=== PATIENT | male | born 1990 | race Caucasian/White ===

== ENCOUNTER 2020-07-23 06:20 | Emergency (ER) | payer OTHER ==
[~2020-07-23] VITALS: Ht 182.8 cm; Wt 90.7 kg
== END 2020-07-23 07:32 | disposition home or self-care (01) ==
LOC: ED 06:20
DX: T15.92XA Foreign body on external eye, part unspecified, left eye, initial encounter (principal); X58.XXXA Exposure to other specified factors, initial encounter; Y93.89 Activity, other specified; Y92.89 Other specified places as the place of occurrence of the external cause; Y99.8 Other external cause status

== ENCOUNTER 2022-09-01 20:40 | Emergency (ER) | payer SELFPAY ==
[~2022-09-01] VITALS: Ht 182.8 cm; Wt 81.6 kg
[2022-09-01] MEDS ORDERED: PENICILLIN VK500 MG PO (21:46)
== END 2022-09-01 22:02 | disposition home or self-care (01) ==
LOC: ED 20:40
DX: K03.81 Cracked tooth (principal); K08.89 Other specified disorders of teeth and supporting structures; R14.3 Flatulence; R60.0 Localized edema

== ENCOUNTER 2023-01-21 18:58 | Emergency (ER) | payer SELFPAY ==
[~2023-01-21] VITALS: Ht 182.8 cm; Wt 83.9 kg
[~2023-01-21 18:58] MED LIST: PENICILLIN VK500 MG PO
[2023-01-21] MEDS ORDERED: CEPHALEXIN500 M1 PO (19:33)
== END 2023-01-21 19:42 | disposition home or self-care (01) ==
LOC: ED 18:58
DX: S61.411A Laceration without foreign body of right hand, initial encounter (principal); Z87.891 Personal history of nicotine dependence; W26.0XXA Contact with knife, initial encounter; Y93.89 Activity, other specified; Y92.89 Other specified places as the place of occurrence of the external cause; Y99.8 Other external cause status

== ENCOUNTER 2023-11-28 20:53 | Inpatient (IN) | payer SELFPAY ==
[~2023-11-28] VITALS: Ht 182.9 cm; Wt 89.6 kg
[~2023-11-28 20:53] MED LIST changes: +CEPHALEXIN500 M1 PO
[2023-11-28 21:04] VITALS: BP 132/62
[2023-11-28] MEDS ORDERED: Vancomycin Hydrochloride 250 ML IV ONE (21:15)
[2023-11-28] MEDS ORDERED: Piperacillin Sodium/Tazobact 50 ML IV ONE (21:15)
[2023-11-28] MEDS ORDERED: LORazepam 2 MG/ML VIAL IV ONE (21:20)
[2023-11-28 21:43] LABS: BASO % 0.3 % (0.0-1.0); EOS % 0.1 % (1.0-4.0); HEMATOCRIT 44.1 % (42.0-52.0); LYMPH # 1.4 10*3/uL (1.3-4.4); LYMPH % 14.7 % (27.0-41.0); MEAN CELL VOLUME 88.2 fl (80.0-94.0); MEAN CORPUSCULAR HGB CONC 32.9 g/dl (33.0-37.0); MEAN PLATELET VOLUME 9.9 fl (9.6-12.3); MONO # 0.4 10*3/uL (0.1-1.0); MONO % 4.3 % (3.0-9.0); NEUT # 7.7 10*3/uL (2.3-7.9); NEUT % 80.2 % (47.0-73.0); PLATELET COUNT AUTOMATED 251 10*3/uL (130-400); RED CELL DISTRI WIDTH 13.1 % (0-14.5); WHITE BLOOD COUNT 9.6 10*3/uL (4.8-10.8)
[2023-11-28] MEDS ORDERED: Acetaminophen/Oxycodone 5 MG/325 MG TABLET PO ONE (21:55)
[2023-11-28 22:07] LABS: BUN 11 mg/dl (9-23); CHLORIDE 105 mmol/L (98-107); POTASSIUM 3.6 mmol/L (3.4-5.1)
[2023-11-28] MEDS ORDERED: BISACODYL 5 MG TAB PO PRN (23:40)
[2023-11-28] MEDS ORDERED: Magnesium Hydroxide 30 ML UDC PO PRN (23:40)
[2023-11-28] MEDS ORDERED: BISACODYL 10 MG SUPP R PRN (23:40)
[2023-11-28] MEDS ORDERED: ACETAMINOPHEN 325 MG TAB PO PRN (23:40)
[2023-11-28] MEDS ORDERED: ACETAMINOPHEN 650 MG SUPP R PRN (23:40)
[2023-11-29 00:20] VITALS: BP 107/62
[2023-11-29] MEDS ORDERED: IOHEXOL 300 MG/ML 100 ML VIAL IV ONE (00:30)
[2023-11-29] MEDS ORDERED: hydrOXYzine 50 MG CAP PO PRN (02:45)
[2023-11-29] MEDS ORDERED: diphenhydrAMINE hydrochloride 50 MG/ML VIAL IV PRN (02:45)
[2023-11-29] MEDS ORDERED: METHOCARBAMOL 750 MG TAB PO PRN (02:45)
[2023-11-29] MEDS ORDERED: Dicyclomine Hydrochloride 20 MG TAB PO PRN (02:45)
[2023-11-29] MEDS ORDERED: Piperacillin Sodium/Tazobact 50 ML IV SCH (03:30)
[2023-11-29] MEDS ORDERED: Vancomycin Hydrochloride 250 ML IV ONE (06:00)
[2023-11-29] MEDS ORDERED: Buprenorphine Hydrochloride 2 MG TAB SL SCH (06:00)
[2023-11-29 06:38] LABS: BASO # 0.1 10*3/uL (0.0-0.1); BASO % 0.7 % (0.0-1.0); EOS # 0.1 10*3/uL (0.0-0.4); EOS % 1.3 % (1.0-4.0); LYMPH # 2.5 10*3/uL (1.3-4.4); LYMPH % 28.7 % (27.0-41.0); MEAN CELL VOLUME 87.7 fl (80.0-94.0); MEAN CORPUSCULAR HGB 28.4 pg (27.0-31.0); MEAN CORPUSCULAR HGB CONC 32.4 g/dl (33.0-37.0); MONO # 0.5 10*3/uL (0.1-1.0); MONO % 5.9 % (3.0-9.0); NEUT # 5.5 10*3/uL (2.3-7.9); NEUT % 62.8 % (47.0-73.0); PLATELET COUNT AUTOMATED 219 10*3/uL (130-400); RED BLOOD COUNT 4.79 10*6/uL (4.50-5.90); WHITE BLOOD COUNT 8.8 10*3/uL (4.8-10.8)
[2023-11-29 07:22] LABS: ALKALINE PHOSPHATASE 64 U/L (46-116); BUN 14 mg/dl (9-23); CHLORIDE 107 mmol/L (98-107); CHOLESTEROL 102 mg/dL (<200); FREE T4 1.09 ng/dl (0.89-1.76); LDL CHOLESTEROL 53 mg/dL (9-159); POTASSIUM 3.6 mmol/L (3.4-5.1); SGPT/ALT 37 U/L (5-49); TOTAL PROTEIN 6.8 gm/dL (6.0-8.0); TRIGLYCERIDES 77 mg/dl (<150)
[2023-11-29 08:00] VITALS: BP 99/57
[2023-11-29] MEDS ORDERED: SODIUM CHLORIDE 0.9% 250 ML BAG IV ONE (09:35)
[2023-11-29] MEDS ORDERED: Vancomycin Hydrochloride 1,000 MG VIAL IV ONE (09:35)
[2023-11-29] MEDS ORDERED: Enoxaparin Sodium 40 MG/0.4 ML SYR SC SCH ×2 (10:00)
[2023-11-29 11:46] VITALS: BP 108/58
[2023-11-29] MEDS ORDERED: VANCOMYCIN/WATER FOR INJ (PEG) 300 ML IV SCH (14:00)
[2023-11-29 16:00] VITALS: BP 109/78
[2023-11-29 20:00] VITALS: BP 116/62
[2023-11-30] VITALS: BP 120/62
[2023-11-30] MEDS ORDERED: Buprenorphine Hydrochloride 2 MG TAB SL SCH (06:00)
[2023-11-30 06:37] LABS: BASO # 0.1 10*3/uL (0.0-0.1); BASO % 0.8 % (0.0-1.0); EOS # 0.1 10*3/uL (0.0-0.4); EOS % 1.4 % (1.0-4.0); HEMATOCRIT 39.9 % (42.0-52.0); LYMPH # 2.9 10*3/uL (1.3-4.4); LYMPH % 34.1 % (27.0-41.0); MEAN CELL VOLUME 86.4 fl (80.0-94.0); MEAN CORPUSCULAR HGB 28.8 pg (27.0-31.0); MEAN CORPUSCULAR HGB CONC 33.3 g/dl (33.0-37.0); MEAN PLATELET VOLUME 9.5 fl (9.6-12.3); MONO # 0.5 10*3/uL (0.1-1.0); MONO % 6.1 % (3.0-9.0); NEUT # 4.9 10*3/uL (2.3-7.9); NEUT % 56.6 % (47.0-73.0); PLATELET COUNT AUTOMATED 211 10*3/uL (130-400); RED BLOOD COUNT 4.62 10*6/uL (4.50-5.90); RED CELL DISTRI WIDTH 13.2 % (0-14.5); WHITE BLOOD COUNT 8.6 10*3/uL (4.8-10.8)
[2023-11-30 06:56] LABS: BUN 17 mg/dl (9-23); CHLORIDE 109 mmol/L (98-107)
[2023-11-30 08:00] VITALS: BP 103/63
[2023-11-30 12:00] VITALS: BP 112/62
[2023-11-30 16:00] VITALS: BP 111/66
[2023-11-30 20:00] VITALS: BP 96/65
[2023-11-30] MEDS ORDERED: VANCOMYCIN/WATER FOR INJ (PEG) 250 ML IV SCH (22:00)
[2023-12-01] VITALS: BP 90/60
[2023-12-01 06:45] LABS: BASO # 0.1 10*3/uL (0.0-0.1); BASO % 1.3 % (0.0-1.0); EOS # 0.2 10*3/uL (0.0-0.4); EOS % 2.1 % (1.0-4.0); HEMATOCRIT 42.2 % (42.0-52.0); LYMPH # 3.4 10*3/uL (1.3-4.4); LYMPH % 39.7 % (27.0-41.0); MEAN CELL VOLUME 87.4 fl (80.0-94.0); MEAN CORPUSCULAR HGB 28.6 pg (27.0-31.0); MEAN CORPUSCULAR HGB CONC 32.7 g/dl (33.0-37.0); MEAN PLATELET VOLUME 9.8 fl (9.6-12.3); MONO # 0.6 10*3/uL (0.1-1.0); MONO % 7.2 % (3.0-9.0); NEUT # 4.1 10*3/uL (2.3-7.9); PLATELET COUNT AUTOMATED 235 10*3/uL (130-400); RED BLOOD COUNT 4.83 10*6/uL (4.50-5.90); RED CELL DISTRI WIDTH 13.1 % (0-14.5); WHITE BLOOD COUNT 8.5 10*3/uL (4.8-10.8)
[2023-12-01 06:57] LABS: BUN 15 mg/dl (9-23); CHLORIDE 108 mmol/L (98-107); POTASSIUM 4.6 mmol/L (3.4-5.1)
[2023-12-01 08:00] VITALS: BP 101/62
[2023-12-01] MEDS ORDERED: Buprenorphine Hydrochloride 2 MG TAB SL SCH (10:00)
[2023-12-01] MEDS ORDERED: VIBRA-TAB100 MG PO (11:18)
== END 2023-12-01 12:04 | disposition home or self-care (01) | DRG 982 ==
LOC: ED 20:53 → EDHOLD 22:25 → 4E 22:25
PROVIDERS: Nurse Practitioner; Student in an Organized Health Care Education/Training Program; ADMIT Internal Medicine; ATTEND Internal Medicine
PROC: 0PBF0ZZ Excision of Right Humeral Shaft, Open Approach (ICD-10-PCS; principal; 2023-11-29)
DX: L03.113 Cellulitis of right upper limb (principal); F11.20 Opioid dependence, uncomplicated; L02.413 Cutaneous abscess of right upper limb; F19.90 Other psychoactive substance use, unspecified, uncomplicated; D64.9 Anemia, unspecified; R73.9 Hyperglycemia, unspecified; Z88.8 Allergy status to other drugs, medicaments and biological substances